=== PATIENT | male | born 1980 | race Caucasian/White ===

== ENCOUNTER 2021-01-05 17:19 | Outpatient (REF) | payer BC, SELFPAY ==
[2021-01-05 20:35] LABS: ALT 51 U/L (16-63); AST 26 U/L (15-37); Albumin 4.3 g/dL (3.4-5.0); Alkaline Phosphatase 92 U/L (46-116); Anion Gap 14.2 mmol/L (3-11); BUN 29 mg/dL (7-18); Bilirubin, Total 0.3 mg/dL (0.2-1.0); CO2 22.8 mmol/L (21.0-32.0); CREATININE 1.2 mg/dL (0.70-1.30); Calcium 8.7 mg/dL (8.5-10.1); Calculated LDL 117 mg/dL (<100); Chloride 105 mmol/L (98-107); Cholesterol 185 mg/dL (<200); Glucose 85 mg/dL (74-106); HDL Cholesterol 48 mg/dL (40-60); Potassium 4.4 mmol/L (3.5-5.1); Sodium 142 mmol/L (136-145); Total Protein 7.3 g/dL (6.4-8.2); Triglyceride 100 mg/dL (<150)
== END 2021-01-05 17:20 | disposition home or self-care (01) ==
LOC: NCHCN 17:19
PROVIDERS: PCP Family Medicine; Visit Provider Physician Assistant Medical
DX: Z78.9 Other specified health status (principal)
CPT/HCPCS: 80053; 80061

== ENCOUNTER 2023-03-09 10:15 | Outpatient (REF) | payer BC, SELFPAY ==
--- NOTE | 2023-03-09 09:50 | SKI_PTH ---
PATIENT: Rasheed Velasquez LOC: [facility] U#:[id number] AGE/SX: 42/M ROOM: RE03/09/[address]: ARIELLE Miguel : 1980 BED: DIS: 03/09/2023 SPEC #: [id number] RECD: 03/09/23 16:44 STATUS: ANJALI REElisha #: [id number] PHYLICIA: 03/09/23 09:[address]: Jaquan Pimentel DEPT: Surgical Specimen RECD BY: Nancy Gonzalez ENTERED: 03/09/23 16:44 SP TYPE: BEV BOSS DR: Tressa Watson V Tissues: 1 - SKIN BIOPSY(SHAVE/PUNCH) Procedures: SKIN LEVEL 4 Comments: [id number]
== END 2023-03-09 10:16 | disposition home or self-care (01) ==
LOC: LBN 10:15
PROVIDERS: PCP Family Medicine; Visit Provider Physician Assistant
DX: D49.2 Neoplasm of unspecified behavior of bone, soft tissue, and skin (principal)
CPT/HCPCS: 88305

== ENCOUNTER 2024-02-27 18:44 | Outpatient (REF) | payer BC, SELFPAY ==
--- OUTSIDE RECORDS SUMMARY | 2024-02-27 18:47 | XMS_ITS | Continuity of Care Document ---
Author Organization [facility] Ambulatory Clinics Address [address] [place] [address] Encounter [facility] FIN R [id number] Date(s): 03/21/23 - 03/21/23 [facility] Ambulatory Clinics [address] [place] [address]-
--- OUTSIDE RECORDS SUMMARY | 2024-02-27 18:47 | XMS_ITS | Encounter Summary ---
Author Organization [facility] [place] [address] Care Team Providers Care Bone Plant Supervisor Name Role Phone Jewels Lopez Primary Care Provider [phone] Reason for Referral * Consultation (Routine) - Authorized Specialty Diagnoses / Procedures Referred By Niall mike Referred To Contact Dermatology Diagnoses Basal cell carcinoma (BCC), unspecified site Jewels Lopez PA [address] [place] [address] [facility] Dermatology [address] [place] [address] Referral ID Status Reason Start Date Expiration Date Visits Requested Visits Authorized [id number] Authorized Consult, Test & Treat PCP Updated and/or Approved 05/14/2023 05/13/2024 6 6 Encounter Details Date Type Department Care Team (Latest Contact Info) Description 05/14/2023 Transcribe Orders eD Incoming Referrals [phone] Jewels Lopez PA [address] [place], [place] [id number] Basal cell carcinoma (BCC), unspecified site Social History Tobacco Use Types Packs/Day Years Used Date Smoking Tobacco: Never Assessed Sex and Gender Information Value Date Recorded Sex Assigned at Not on file Gender Identity Not on file Sexual Orientation Not on file documented as of this encounter Plan of Treatment Scheduled Referrals Name Type Priority Associated Diagnoses Orde r Schedule Referral to Dermatology Outpatient Referral Routine Basal Cell Carcinoma (Bcc), Unspecified Site Ordered: 05/14/2023 documented as of this encounter Visit Diagnoses Diagnosis Basal cell carcinoma (BCC), unspecified site documented in this encounter Care Teams Bone Plant Supervisor Relationship Specialty Start Date End Date Jewels Lopez PA [address] [place] [address] PCP - General Family Medicine 05/14/23 documented as of this encounter
--- OUTSIDE RECORDS SUMMARY | 2024-02-27 18:47 | XMS_ITS | Clinical Summary ---
Author Organization [facility] Address [address] [place] [address] Care Team Providers Care Experimental Mechanic Name Role Phone Tressa Watson MD Primary Care Provider [phone] Social History Tobacco Use Types Packs/Day Years Used Date Smoking Tobacco: Never Assessed Sex and Gender Information Value Date Recorded Sex Assigned at Not on file Gender Identity Not on file Sexual Orientation Not on file Plan of Treatment Health Maintenance Due Date Last Done Comments Hepatitis C Screen 1980 Hepatitis B Vaccine (1 of 3 - 19+ 3-dose series) 12/01 COVID-19 Vaccine (2022-24 season) 2023 Care Teams Experimental Mechanic Relationship Specialty Start Date End Date Tressa Watson MD [address] [place] [address] PCP - General 10/31/13
--- OUTSIDE RECORDS SUMMARY | 2024-02-27 18:47 | XMS_ITS | Encounter Summary ---
Author Organization [facility] Address [address] [place] [address] Care Team Providers Care Senior Ui Ux Developer Name Role Phone Unknown, Provider Primary Care Provider [phone] Encounter Details Date Type Department Care Team (Late st Contact Info) Description 10/29/2013 Results Only [facility] Laboratory Services - [facility] ([facility] [place] [place]) [address] [place] [address] [id number] Reagan Garcia MD [address] [place] [id number] Social History Tobacco Use Types Packs/Day Years Used Date Smoking Tobacco: Never Assessed Sex and Gender Information Value Date Recorded Sex Assigned at Not on file Gender Identity Not on file Sexual Orientation Not on file documented as of this encounter Plan of Treatment Not on file documented as of this encounter Procedures Procedure Name Priority Date/Time Associated Diagnosis Comments SURGICAL PATHOLOGY Routine 10/29/2013 8:34 EDT documented in this encounter Results * SURGICAL PATHOLOGY (10/29/2013 8:34 EDT) Pathology Report: SURGICAL PATHOLOGY REPORT Reports generated via electronic interface contain original data; however they are lacking the format of the original report. Caution should be taken when reading/interpreti ng unformatted reports. Name: ? RASHEED MANCUSO ? Accession #: ? [id number] ? : ? 1980 (Age: 32) ??M ? Collect Date: ? 10/29/2013 ? Location: ? [facility] ? Receive Date: ? 10/30/2013 ? Provider: REAGAN GARCIA MD Copy to: CHARO MCKEON MD ? Final Pathologic Diagnosis: A. VAS DEFERENS, SEGMENT OF LEFT, VASECTOMY: - ??Portion of vas deferens with intact lumen. B. VAS DEFERENS, SEGMENT OF RIGHT, VASECTOMY: - ??Portion of vas deferens with intact lumen. Document reviewed and electronically signed by: Tamie Mittal MD Report ??Date: 11/03/2013 15:59 By the signature above, the attending physician certifies that he/she has personally conducted a gross and/or microscopic examination of the described specimens and rendered or confirmed the above diagnosis. Specimen(s) Received: A. ??L vas B. ??R vas Clinical History: Vasectomy Gross Description: A. ?Received in formalin labelled with proper patient identification (initials J, D) and left vas is a rosales-white tubular tissue (1.0 to in length and 0.3 cm in diameter). ??The cut surface is unremarkable and a central pinpoint lumen is identified. ??Two district representative cross sections are submitted as A1. B. ?Received in formalin labelled with proper patient identification (initials J, D) and right vas is a rosales-white tubular tissue (1.4 cm in length and 0.3 cm in diameter). ??The cut surface is unremarkable and a central pinpoint lumen is identified. ??Two district representative cross sections are submitted as B1. Dr. Wells 10/30/2013 03:12 PM End of Report [facility] 10/29/2013 8:34 EDT 10/30/2013 8:34 EDT Reagan Garcia MD [address]OLOG[address] [place] [address] documented in this encounter Visit Diagnoses Not on filedocumented in this encounter Care Teams Senior Ui Ux Developer Relationship Specialty Start Date End Date Unknown, Provider, PCP - General 10/30/13 10/30/13 documented as of this encounter
--- OUTSIDE RECORDS SUMMARY | 2024-02-27 18:47 | XMS_ITS | Encounter Summary ---
Author Organization [facility] Address [facility] [place] [address] Care Team Providers Care Regulatory Affairs Portfolio Leader Name Role Phone Jewels Lopez Primary Care Provider [phone] Reason for Visit * Consultation (Routine) - Authorized Specialty Diagnoses / Procedures Referred By Niall mike Referred To Contact Dermatology Diagnoses Basal cell carcinoma (BCC), unspecified site Jewels Lopez PA [address] [place] [address] [facility] Dermatology [address] [place] [address] Referral ID Status Reason Start Date Expiration Date Visits Requested Visits Authorized [id number] Authorized Consult, Test & Treat PCP Updated and/or Approved 05/14/2023 05/13/2024 6 6 Encounter Details Date Type Department Care Team (Late st Contact Info) Description 08/31/2023 9:20 AM EDT Office Visit Dermatology at [facility] [address] [place] [address] Abhishek Johnson MD [facility] [address] [place] [address] Actinic keratoses; Multiple benign nevi of upper extremity, lower extremity, and trunk; Tsai angioma; Lentigines; History of basal cell carcinoma Social History Tobacco Use Types Packs/Day Years Used Date Smoking Tobacco: Never Assessed Sex and Gender Information Value Date Recorded Sex Assigned at Not on file Gender Identity Not on file Sexual Orientation Not on file documented as of this encounter Progress Notes * Abhishek Johnson MD - 08/31/2023 9:20 AM EDT Images from the original note were not included. DEPARTMENT OF DERMATOLOGY Medical Dermatology Clinic Note Provider: Abhishek Johnsno MD Patient's preferred name Rasheed Preferred contact method for results [x]Phone []myD-H []Letter Detailed phone message OK? Y Are there any other people with whom we may discuss your care? Spouse (Mile) Past Medical History Date, location, treatment Melanoma N Dysplastic nevi N SCC N BCC 04/28: BCC, left neck s/p Mohs AKs N UV Exposure & Protection Other relevant past medical history Family History Details Melanoma N NMSC Mother Other relevant family history + Psoriasis + Eczema Social History Occupation: Hobbies: Children: 3 boys Pre-Procedure Questions Details Allergy to lidocaine, epinephrine, Dermabond, chlorhexidine, or adhesives N Bleeding disorder or blood thinners N Implanted devices (Pacemaker, defibrillator, deep brain stimulator, cochlear implant) N History of Present Illness: Rasheed Velasquez is a 42 y.o. Patient is referred to the clinic at [facility] of Jewels Lopez for a full skin exam with the following concerns: - He has not noted any new, growing, changing, bleeding, painful or otherwise symptomatic moles or other lesions. He has not noted any changes in any preexisting lesions. Review of Systems: General: Feeling well. Skin: No other skin concerns. Medications: Reviewed in eD-H Allergies: Reviewed in eD-H Skin Examination: Full skin examination: Patient asked to undress to their comfort level. Verbalized that the provider???s preference is that the patient remove all clothing and that the provider will not examine areas patient elects to keep covered. Patient elects to keep underwear on and have the following examined: scalp, hair, face, ears, neck, chest, axillae, abdomen, back, and upper and lower extremities. Genitalia and buttocks were not examined. Assessment/Plan #. Actinic Keratosis - Scaly irregular pink papule located on left druze x 1 - Discussed etiology and treatment options with patient - Joint decision to pursue LN2 x 2 to lesion. Advised to return if lesion(s) do not resolve. Procedure Note: Procedure: Destruction of lesions with cryotherapy. Number: 1 Location: as above Discussed procedure and expectations including risks (including risk of hypopigmentation) and benefits. Verbal consent obtained. Frozen with LN2, 15-30 second thaw time, TWICE. There were no complications; the patient tolerated the procedure well. Post-procedure expectations and wound care were reviewed. #. Benign Nevi - Scattered medium-brown macules and papules on the trunk and extremities. - Reassured of benign appearance on exam today. #. Tsai Angiomas - Multiple bright red, well-demarcated papules on the abdomen, chest, and back - Reassured of benign nature #. Solar Lentigines - Light-brown evenly pigmented, well-demarcated macules on sun exposed areas ofthe skin. - Patient reassured of benign nature. #. History of BCC - Well-healed scars per skin history. - No evidence of recurrence; will continue to monitor. - Discussed that it could take up to a year for the scar to settle Other: Sun protection discussed (protective clothing and SPF30+ broad-spectrum sunscreen) RTC: 1 year for FSE []Note routed to secretary to board of commissioners [x]Recall placed in scheduling system []Appointment scheduled at checkout Scribe attestation: Mi Conley [facility] has performed the documentation for this encounter in the presence of and acting as a scribe for Abhishek Johnson MD. I performed the above scribed service and agree with the accuracy of the documentation in this encounter. Reviewed and signed by: Abhishek Johnson MD Dermatology [facility] Patient seen and evaluated with staff parcel contractor: Azalia Cuellar MD Department of Dermatology [facility] * Azalia Cuellar MD - 08/31/2023 9:20 AM EDT I was the supervising physician working with the Dermatology resident, Abhishek Johnson MD, in the care of this Dermatology patient in person. For the purposes of billing, the resident provided the care. I have reviewed the encounter note details and level of service. AZALIA CUELLAR MD Staff Photofinishing Laboratory Worker Department of Dermatology [facility] documented in this encounter Plan of Treatment Scheduled Referrals Name Type Priority Associated Diagnoses Orde r Schedule Referral to Dermatology Outpatient Referral Routine Basal Cell Carcinoma (Bcc), Unspecified Site Ordered: 05/14/2023 documented as of this encounter Visit Diagnoses Diagnosis Actinic keratoses Actinic keratosis Multiple benign nevi of upper extremity, lower extremity, and trunk Tsai angioma Nevus, non-neoplastic Lentigines Other dyschromia History of basal cell carcinoma Personal history of other malignant neoplasm of skin documented in this encounter Care Teams Regulatory Affairs Portfolio Leader Relationship Specialty Start Date End Date Jewels Lopez PA [address] [place] [address] PCP - General Family Medicine 05/14/23 documented as of this encounter
--- OUTSIDE RECORDS SUMMARY | 2024-02-27 18:47 | XMS_ITS | Encounter Summary ---
[place] [address] Care Team Providers Care Aircraft Delivery Checker Name Role Phone Jewels Lopez Primary Care Provider [phone] Encounter Details Date Type Department Care Team (Latest Contact Info) Description 08/31/2023 Travel Social History Tobacco Use Types Packs/Day Years Used Date Smoking Tobacco: Never Assessed Sex and Gender Information Value Date Recorded Sex Assigned at Not on file Gender Identity Not on file Sexual Orientation Not on file documented as of this encounter Plan of Treatment Not on file documented as of this encounter Visit Diagnoses Not on filedocumented in this encounter Care Teams Aircraft Delivery Checker Relationship Specialty Start Date End Date Jewels Lopez PA [address] [place] [address] PCP - General Family Medicine 05/14/23 documented as of this encounter
--- OUTSIDE RECORDS SUMMARY | 2024-02-27 18:47 | XMS_ITS | Encounter Summary ---
Author Organization [facility] [place] [address] Care Team Providers Care Tax Services Specialist Name Role Phone Jewels Lopez Primary Care Provider [phone] Encounter Details Date Type Department Care Team (Late st Contact Info) Description 06/19/2023 Telephone Dermatology at [facility] [address] [place] [address] Gertrude Parker Social History Tobacco Use Types Packs/Day Years Used Date Smoking Tobacco: Never Assessed Sex and Gender Information Value Date Recorded Sex Assigned at Not on file Gender Identity Not on file Sexual Orientation Not on file documented as of this encounter Miscellaneous Notes * Telephone Encounter - Gertrude Parker - 06/19/2023 12:37 PM EST Patients Mile called stating that they received a letter from [facility] regarding needing to schedule a surgery for skin cancer. Per Mile, patient had this skin cancer removed in April 2023 in [place]. Patient has been referred to Dermatology at for annual skin checks. No current skin cancer issues at this time. documented in this encounter Plan of Treatment Not on file documented as of this encounter Visit Diagnoses Not on filedocumented in this encounter Care Teams Tax Services Specialist Relationship Specialty Start Date End Date Jewels Lopez PA [address] [place] [address] PCP - General Family Medicine 05/14/23 documented as of this encounter
--- OUTSIDE RECORDS SUMMARY | 2024-02-27 18:47 | XMS_ITS | Encounter Summary ---
Author Organization [facility] Address [address] [place] [address] Care Team Providers Care Kst Operator Name Role Phone Tressa Watson MD Primary Care Provider [phone] Encounter Details Date Type Department Care Team (Late st Contact Info) Description 04/20/2023 Lab Requisition [facility] Lab - Main [address] [address] Matthew Bundy, [address] [place], [place] [id number] Basal cell carcinoma of skin, unspecified Social History Tobacco Use Types Packs/Day Years Used Date Smoking Tobacco: Never Assessed Sex and Gender Information Value Date Recorded Sex Assigned at Not on file Gender Identity Not on file Sexual Orientation Not on file documented as of this encounter Plan of Treatment Not on file documented as of this encounter Procedures Procedure Name Priority Date/Time Associated Diagnosis Comments SURGICAL PATHOLOGY Today 04/19/2023 14 :25 EST Basal cell carcinoma of skin, unspecified documented in this encounter Results * SURGICAL PATHOLOGY (04/19/2023 14:25 EST) Note to Patient The following pathology results have been interpreted by your pathologist and may be available to you before your health provider has had the opportunity to review them. Please allow time for your provider to receive these results and explore management options, if applicable. 04/23/2023 15:22 EST [facility] Final Diagnosis A. SKIN OF NECK, LEFT, EXCISION FOR FROZEN SECTION: - Epidermal reparative changes and dermal scar, consistent with prior biopsy site. See comment. - No residual malignancy identified. B. SKIN OF NECK, LEFT, 3 O'CLOCK DOG EAR, EXCISION: - Negative for malignancy. 04/23/2023 15:22 [facility] Diagnosis Comment Correlation is made with the prior biopsy ([id number]). 04/23/2023 15:22 [facility] Attestation By the signature below, the attending physician certifies that they have 1) personally conducted a gross and/or microscopic examination of the described specimen(s), and/or personally interpreted the results of laboratory testing of the described specimen(s), and 2) personally rendered or confirmed the above diagnosis. 04/23/2023 15:22 [facility] at 1522 Intraoperative Consultation A. SKIN OF NECK, LEFT, FROZEN SECTION: - FSA1 (Levels 1 and 8, 3 o'clock and 9 o'clock tips en face): Tips uninvolved by tumor. - FSA2 (Levels 2, 3, 4): Margins uninvolved by tumor. - FSA3 (Levels 5, 6, 7): Margins uninvolved by tumor. The above frozen section was performed and evaluated by Dr. Bonita Francisco at [facility] on 04/19/2023. The results were communicated to Dr. Matthew Bundy/ARIELLE Paige on 04/19/2023 at 3:04 p.m. 04/23/2023 15:22 [facility] Clinical History BCC kin, left neck 04/23/2023 15:22 [facility] Gross Description A. Originally received fresh and now in formalin labeled ? Rasheed Velasquez? and ? left neck? is an elliptical excision of rosales skin centered on a healed linear scar with the following attached orienting sutures: White equals 3 o'clock, blue equals 6 o'clock, black equals 9 o'clock; measuring 1.3 cm (12-6 o'clock) by 3.4 cm (9-3 o'clock) and excised to a depth of 0.4 cm. The 9-12-3 o'clock margin is inked blue, the 3-6-9 o'clock margin green, the deep margin orange. The specimen is serially sectioned from 3 o'clock to 9 o'clock and submitted as FS A1 through FS A3 for frozen section. The frozen section remnants are submitted as per block summary. Block summary: A1: 3 o'clock tip, en face, portion of FSA1 control, A2-A7: Consecutive central sections, FSA2 and FSA3 controls, A8: 9 o'clock tip, en face, portion of FSA1 control. B. Received in formalin labeled ? Rasheed Velasquez? and ? 3 o'clock dog ear, new margin inked purple? is a single triangular excision of skin that measures 1.3 cm in height by 0.6 cm in width excised to a depth of 0.4 cm. Two of the main sides are inked purple and the 2 o'clock side is over inked in blue and the 4 o'clock side is over inked in black. The specimen is then sectioned from the new/final tip opposite the prior resection margin to the opposing end representing the prior/initial excision margin and submitted entirely and sequentially as per block summary. Block summary: B1-new/final margin tip, reverse en face, B2-B3-next for sequential margins heading towards initial excision margin. Carl Guerra MD 04/20/2023 18:51 04/23/2023 15:22 [facility] Performing Lab [facility] 04/23/2023 15:22 [facility] Scanned Images 04/23/2023 15:22 [facility] Tissue SPECIMEN FROM SKIN / Unknown 04/19/2023 14:25 EST 04/20/2023 14:47 EST Tissue specimen (specimen) SPECIMEN FROM SKIN / Unknown 04/19/2023 14:25 EST 04/20/2023 14:47 EST Matthew Bundy DO PATHOLOGY ORDER DARLEEN [facility] [address] [place] [address] documented in this encounter Visit Diagnoses Diagnosis Basal cell carcinoma of skin, unspecified documented in this encounter Care Teams Kst Operator Relationship Specialty Start Date End Date Tressa Watson MD [address] [place] [address] PCP - General 10/31/13 documented as of this encounter
--- OUTSIDE RECORDS SUMMARY | 2024-02-27 18:47 | XMS_ITS | Encounter Summary ---
Author Organization [facility] Address [address] [place] [address] Care Team Providers Care Patient Safety Sitter Name Role Phone Tressa Watson MD Primary Care Provider [phone] Encounter Details Date Type Department Care Team (Late st Contact Info) Description 03/10/2023 Lab Requisition [facility] Pathology & Laboratory Medicine - [address] [address] Jaquan Pimentel, [address] [facility] [address] [place] [id number] Neoplasm of unspecified behavior of bone, soft tissue, and skin Social History Tobacco Use Types Packs/Day Years Used Date Smoking Tobacco: Never Assessed Sex and Gender Information Value Date Recorded Sex Assigned at Not on file Gender Identity Not on file Sexual Orientation Not on file documented as of this encounter Plan of Treatment Not on file documented as of this encounter Procedures Procedure Name Priority Date/Time Associated Diagnosis Comments SURGICAL PATHOLOGY Today 03/09/2023 9: 50 EDT Neoplasm of unspecified behavior of bone, soft tissue, and skin documented in this encounter Results * SURGICAL PATHOLOGY (03/09/2023 9:50 EDT) Note to Patient The following pathology results have been interpreted by your pathologist and may be available to you before your health provider has had the opportunity to review them. Please allow time for your provider to receive these results and explore management options, if applicable. 03/12/2023 15:49 EST [facility] Final Diagnosis A. SKIN OF NECK, LEFT, SHAVE BIOPSY: - Basal cell carcinoma, superficial and nodular types, involving the biopsy base. 03/12/2023 15:49 [facility] Attestation By the signature below, the attending physician certifies that they have 1) personally conducted a gross and/or microscopic examination of the described specimen(s), and/or personally interpreted the results of laboratory testing of the described specimen(s), and 2) personally rendered or confirmed the above diagnosis. 03/12/2023 15:49 [facility] at 1549 Clinical History Abnormal skin growth; clinical diagnosis code: D49.2 03/12/2023 15:49 [facility] Gross Description A. Received in formalin labelled with proper patient identification (initials J, D) and L neck is an irregular rubbery skin shave, 1.7 x 1.3 x 0.2 cm. The central skin surface is pale sapp and the periphery rosales. The margin is inked. Serially sectioned and entirely submitted in A1-A2. ARIELLE TENORIO(ASCP) 03/12/2023 8:06 03/12/2023 15:49 [facility] Performing Lab [facility] 03/12/2023 15:49 [facility] Scanned Images 03/12/2023 15:49 [facility] Tissue SPECIMEN FROM SKIN / Unknown 03/09/2023 9:50 EDT 03/10/2023 9:44 EDT Jaquan GUZMÁN PATHOLOGY ORDERABL ES [facility] [address] [place] [address] documented in this encounter Visit Diagnoses Diagnosis Neoplasm of unspecified behavior of bone, soft tissue, and skin documented in this encounter Care Teams Patient Safety Sitter Relationship Specialty Start Date End Date Tressa Watson MD [address] [place] [id number] PCP - General 6/27/14 documented as of this encounter
--- OUTSIDE RECORDS SUMMARY | 2024-02-27 18:47 | XMS_ITS | Continuity of Care Document ---
Author Organization [facility] Address [address] [place] [address] Encounter [facility] NBR [id number] Date(s): 04/19/23 - 04/19/23 [facility] [address] [place] [address]- Encounter Diagnosis Basal cell carcinoma of skin of scalp and neck(Final) - Discharge Disposition: Home or Self Care Attending Physician: Matthew Bundy DO Admitting Physician: Matthew Bundy DO Referring Physician: Mattehw Bundy DO Allergies, Adverse Reactions, Alerts No Known Medication Allergies Functional Status 04/19/23 ADLs Independent Antiembolism Device Intermittent pneumat ic compression devices, knee high, bilat Medications cephalexin 500 mg oral tablet 500 mg = 1 tab, Oral, every 8 hr, # 15 tab, 0 Refill(s), Pharmacy: [facility], 170, cm,04/16/23 13:16:00 EST, Height, 86, kg, 04/16/23 13:20:00 EST, Weight Dosing Start Date: 04/19/23 Stop Date: 04/24/23 Status: Ordered omeprazole 40 mg oral delayed release capsule 40 mg = 1 cap, Oral, every night at bedtime, 0 Refill(s) Start Date: 04/16/23 Status: Ordered Tylenol Extra Strength PM 500 mg-25 mg oral tablet 1 tab, Oral, every night at bedtime, PRN as needed for sleep, 0 Refill(s) Start Date: 04/16/23 Status: Ordered Problem List Condition Confirmation Course Effective Dates Status Health St atus Informant Arthritis Confirmed Active Back pain Confirmed Active BCC - Basal cell carcinoma of skin Confirmed Active GERD - Gastro-esophageal reflux disease Confirmed Active Procedures Procedure Date Related Diagnosis Body Site Status Basal Cell Excision Frozen S ection (Left, Neck) 1 04/19/23 Completed Bilateral vasectomy Compl eted 1auto-populated from documented surgical case Vital Signs Most recent to oldest [Reference Range]: 1 2 3 Temperature Temporal Artery [36-38 Deg C] 36.7 Deg C (04/19/23 3:15 PM) 36.7 Deg C (04/19/23 11:57 AM) Temperature Temporal Artery (DegF) [97.3-100 Deg F] 98.06 Deg F (04/19/23 3:15 PM) Peripheral Pulse Rate [60-100 bpm] 81 bpm (04/19/23 3:35 PM) 78 bpm (04/19/23 3:30 PM) 83 bpm (04/19/23 3:25 PM) Heart Rate Monitored [60-100 bpm] 87 bpm (04/19/23 3:35 PM) 87 bpm (04/19/23 3:30 PM) 87 bpm (04/19/23 3:25 PM) Respiratory Rate [12-24 br/min] 18 br/min (04/19/23 11:57 AM) Blood Pressure [90-140/60-90 mmHg] 142/108mmHg *HI* (04/19/23 3:35 PM) 141/104mmHg *HI* (04/19/23 3:30 PM) 143/108mmHg *HI* (04/19/23 3:25 PM) Mean Arterial Pressure, Cuff [70-110 mmHg] 119 mmHg *HI* (04/19/23 3:35 PM) 116 mmHg *HI* (04/19/23 3:30 PM) 120 mmHg *HI* (04/19/23 3:25 PM) Mean Arterial Pressure Cuff 118 mmHg (04/19/23 3:35 PM) 116 mmHg (04/19/23 3:30 PM) 119 mmHg (04/19/23 3:25 PM) Blood Pressure Location Left arm (04/19/23 3:35 PM) Left arm (04/19/23 3:30 PM) Left arm (04/19/23 3:25 PM) Blood Pressure Method Automatic (04/19/23 3:35 PM) Automatic (04/19/23 3:30 PM) Automatic (04/19/23 3:25 PM) Weight 86 kg (04/16/23 1:16 PM) Weight Dosing 86.000 kg (04/16/23 1:16 PM) Height 170 cm (04/16/23 1:16 PM) Social History Social History Type Response Tobacco Never tobacco user T obacco Use:. Sex Discharge instructions * Event Display: Discharge Instructions Patient Care team information Care Team Related Persons Name: NEMESIO MANCUSO
--- OUTSIDE RECORDS SUMMARY | 2024-02-27 18:47 | XMS_ITS | Referral Summary ---
Author Organization [facility] Address [address] [place] [address] Care Team Providers Care Button Pusher Name Role Phone Tressa Watson MD Primary Care Provider [phone] Social History Tobacco Use Types Packs/Day Years Used Date Smoking Tobacco: Never Assessed Sex and Gender Information Value Date Recorded Sex Assigned at Not on file Gender Identity Not on file Sexual Orientation Not on file Plan of Treatment Not on file Care Teams Button Pusher Relationship Specialty Start Date End Date Tressa Watson MD [address] [place] [address] PCP - General 10/31/13
--- OUTSIDE RECORDS SUMMARY | 2024-02-27 18:47 | XMS_ITS | Clinical Summary ---
Author Organization [facility] [place] [address] Care Team Providers Care Director Of Counseling Name Role Phone Jewels Lopez Primary Care Provider [phone] Medications Medication Sig Dispensed Refills Start Date End Date Status omeprazole (PRILOSEC OTC) 20 mg tablet 01/04/2006 Active Immunizations Name Administration Dates Next Due Influenza Trivalent w/Preservative 03/22/2011 Social History Tobacco Use Types Packs/Day Years Used Date Smoking Tobacco: Never Assessed Sex and Gender Information Value Date Recorded Sex Assigned at Not on file Gender Identity Not on file Sexual Orientation Not on file Plan of Treatment Health Maintenance Due Date Last Done Comments HIV screen 2000 Hepatitis C Screening 2000 Lipid Screening 2000 Hepatitis B vaccine (0-59 yrs) (1) 2001 Tetanus/Diphtheria/Pertussis Vaccines (1 - Tdap) 12/01 Covid-19 Vaccine (1 - 2022-24 season) 2024 Influenza (Flu) vaccine (1 o f 1 - Influenza standard series) 01/06/2024 03/22/2011 Care Teams Director Of Counseling Relationship Specialty Start Date End Date Jewels Lopez PA [address] [place] [address] PCP - General Family Medicine 05/14/23
--- OUTSIDE RECORDS SUMMARY | 2024-02-27 18:47 | XMS_ITS | Encounter Summary ---
Author Organization [facility] Address [address] [place] [address] Care Team Providers Care Level Vial Inspector Name Role Phone Unavailable Primary Care Provider Unavailabl e Encounter Details Date Type Department Care Team (Latest Contact Info) Description 10/29/2013 13:35 EDT - 10/29/2013 23:59 EDT Hospital Encounter [address] [address] Unknown, Provider, Discharge Disposition: Home or Self Care Social History Tobacco Use Types Packs/Day Years Used Date Smoking Tobacco: Never Assessed Sex and Gender Information Value Date Recorded Sex Assigned at Not on file Gender Identity Not on file Sexual Orientation Not on file documented as of this encounter Discharge Disposition Disposition Code Departure Means Destination Home or Self [facility] documented in this encounter Plan of Treatment Not on file documented as of this encounter Visit Diagnoses Not on filedocumented in this encounter
[2024-02-27 19:48] LABS: ALT 47 U/L (16-63); AST 26 U/L (15-37); Albumin 3.9 g/dL (3.4-5.0); Alkaline Phosphatase 98 U/L (46-116); Anion Gap 7.8 mmol/L (3-11); BUN 20 mg/dL (7-18); Bilirubin, Total 0.46 mg/dL (0.2-1.0); CO2 26.2 mmol/L (21.0-32.0); CREATININE 1.1 mg/dL (0.70-1.30); Calculated LDL 109 mg/dL (<100); Chloride 106 mmol/L (98-107); Cholesterol 193 mg/dL (<200); Estimated GFR 86.49 (mL/min/1.73m2); Glucose 90 mg/dL (74-106); HDL Cholesterol 51 mg/dL (40-60); Potassium 4.3 mmol/L (3.5-5.1); Sodium 140 mmol/L (136-145); Total Protein 7.3 g/dL (6.4-8.2); Triglyceride 166 mg/dL (<150)
== END 2024-02-27 18:45 | disposition home or self-care (01) ==
LOC: NCHCN 18:44
PROVIDERS: PCP Physician Assistant Medical; Visit Provider Physician Assistant Medical
DX: Z13.220 Encounter for screening for lipoid disorders (principal)
CPT/HCPCS: 80053; 80061

== ENCOUNTER 2024-03-03 01:18 | Outpatient (CLI) | payer BC, SELFPAY ==
--- NOTE | 2024-03-03 | DI.RAD_ITS ---
Exam(s) XR LUMBAR SPINE COMPLETE EXAM: XR LUMBAR SPINE COMPLETE CLINICAL HISTORY: LOW BACK PAIN,M54.50. TECHNIQUE: 2D digital imaging was performed. Five views. COMPARISON: No exams were available for comparison FINDINGS: BONES: No fracture or destructive lesion. Vertebral body heights are maintained. Mild facet hypert rophy identified at L 4 5.. DISKS: Moderate narrowing of the L3-4 and L4-5 disc spaces. Endplate osteophytes at these levels. T he remain intervertebral disc spaces are maintained. ALIGNMENT: Lumbar spinal alignment is within normal limits. SOFT TISSUE: Normal. IMPRESSION: Degenerative disc changes at L3-4 and L4-5. DATA REPOSITORY: RADIATION DOSE DELIVERED:
== END 2024-03-03 01:38 ==
LOC: DI 01:18
PROVIDERS: PCP Physician Assistant Medical; Visit Provider Physician Assistant Medical
DX: M51.360 Other intervertebral disc degeneration, lumbar region with discogenic back pain only (principal)
CPT/HCPCS: 72110

== ENCOUNTER 2024-03-26 17:02 | Outpatient (REF) | payer BC, SELFPAY ==
[2024-03-26 20:34] LABS: Anion Gap 9.3 mmol/L (3-11); BUN 21 mg/dL (7-18); CO2 25.7 mmol/L (21.0-32.0); CREATININE 1.1 mg/dL (0.70-1.30); Calcium 9.2 mg/dL (8.5-10.1); Chloride 106 mmol/L (98-107); Estimated GFR 86.49 (mL/min/1.73m2); Glucose 82 mg/dL (74-106); Potassium 4.8 mmol/L (3.5-5.1); Sodium 141 mmol/L (136-145)
== END 2024-03-26 17:03 | disposition home or self-care (01) ==
LOC: NCHCN 17:02
PROVIDERS: PCP Physician Assistant Medical; Visit Provider Physician Assistant Medical
DX: I10 Essential (primary) hypertension (principal)
CPT/HCPCS: 80048

== ENCOUNTER 2024-05-09 09:09 | Outpatient (REF) | payer BC, SELFPAY ==
[2024-05-09 15:56] LABS: Anion Gap 6.9 mmol/L (3-11); BUN 24 mg/dL (7-18); CO2 28.1 mmol/L (21.0-32.0); Calcium 8.8 mg/dL (8.5-10.1); Chloride 105 mmol/L (98-107); Estimated GFR 96.97 (mL/min/1.73m2); Glucose 98 mg/dL (74-106); Magnesium 1.9 mg/dL (1.8-2.4); Potassium 3.9 mmol/L (3.5-5.1); Sodium 140 mmol/L (136-145)
== END 2024-05-09 09:10 | disposition home or self-care (01) ==
LOC: NCHCN 09:09
PROVIDERS: PCP Physician Assistant Medical; Visit Provider Physician Assistant Medical
DX: I10 Essential (primary) hypertension (principal)
CPT/HCPCS: 80048; 83735